=== PATIENT | male | born 1980 | race Caucasian/White ===

== ENCOUNTER 2018-05-15 15:09 | Emergency (ER) | payer SELFPAY ==
[~2018-05-15] VITALS: Ht 188 cm; Wt 96.2 kg
--- NOTE | 2018-05-15 15:09 | NUR ---
PATIENT BIBA TO BED 8 AT THIS TIME.
[2018-05-15 15:15] VITALS: BP 135/87
[2018-05-15] MEDS ORDERED: NACL 0.9% 1,000 ML IV ONE (15:28)
[2018-05-15] MEDS ORDERED: MULTIVITAMIN-12 10 ML, THIAMINE 100 MG, MAGNESIUM SULFATE 50% 2,000 MG, FOLIC ACID 5 MG... IV ONE ×5 (15:28)
[2018-05-15] MEDS ORDERED: FAMOTIDINE 20 MG/2 ML VIAL IVP ONE (15:30)
[2018-05-15] MEDS ORDERED: diphenhydrAMINE 50 MG/ML VIAL IVP ONE (15:30)
--- NOTE | 2018-05-15 15:33 | NUR ---
37 yo m biba bls with c/o ETOH. Patient sts he drank 2 bottles of white wine, nayla dickinsonio. Patient is aox4 to person, place, time, and situation, but delayed response and slurred and excessive speech. Patient aggressive on scene per evening anchor report, but is more calm now, however states that he wants to go home. Patient arrived restrainted to bl arms. Restraints removed on arrival. CMS intact to bl arms, color appropriate. pt rr even and unlabored, lungs bl clear. no injury nor fall. no hx seizures w/ hx etoh abuse. abd soft, non-tender. er md notified of pt staus. pt needs met. safety precautions in place, will continue to monitor.
--- NOTE | 2018-05-15 15:50 | NUR ---
phleb at bedside at this time.
[2018-05-15] MEDS ORDERED: FOLIC ACID 5 MG, MULTIVITAMIN-12 10 ML, THIAMINE 100 MG, MAGNESIUM SULFATE 50% 2,000 MG... IV ONE ×5 (16:03)
--- NOTE | 2018-05-15 16:06 | NUR ---
pt states that he does not want the benadryl or pepcid. dmitriy hua notified. pt , marko states that she is on her way.
[2018-05-15] MEDS ORDERED: FOLIC ACID 5 MG, MULTIVITAMIN-12 10 ML, THIAMINE 100 MG, MAGNESIUM SULFATE 50% 2,000 MG... IV SCH ×5 (16:07)
[2018-05-15 16:13] LABS: BASOPHILS % (AUTO) 0.6 % (0.0-2.0); EOSINOPHILS % (AUTO) 0.2 % (0.0-4.0); HEMATOCRIT 53.8 % (36-52); HEMOGLOBIN 18.1 g/dL (12.0-18.0); LYMPHOCYTES # (AUTO) 0.8 K/uL (2.0-11.5); LYMPHOCYTES % (AUTO) 20.2 % (20.5-51.1); MEAN CORPUSCULAR HEMOGLOBIN 32 pg (27-31); MEAN CORPUSCULAR HGB CONC 34 g/dL (33-37); MEAN CORPUSCULAR VOLUME 96.2 fL (80-94); MONOCYTES # (AUTO) 0.3 K/uL (0.8-1.0); MONOCYTES % (AUTO) 7.5 % (1.7-9.3); NEUTROPHILS # (AUTO) 2.9 K/uL (1.8-7.7); NEUTROPHILS % (AUTO) 71.5 % (42.2-75.2); PLATELET COUNT (AUTO) 134 K/uL (140-450); RED BLOOD CELL COUNT(AUTO) 5.59 MIL/uL (4.20-6.10); RED CELL DISTRIBUTION WIDTH 14.5 % (11.6-13.7)
--- NOTE | 2018-05-15 16:20 | NUR ---
AT BEDSIDE WITH PATIENT AT THIS TIME.
[2018-05-15 16:27] LABS: ALBUMIN 3.6 g/dL (3.4-5.0); ASPARTATE AMINOTRANSFERASE 47 U/L (15-37); CARBON DIOXIDE 31.1 mmol/L (21-32); CHLORIDE 98 mmol/L (98-107); CREATININE 1.2 mg/dL (0.7-1.3); GFR ARICAN-AMERICAN 87 mL/min (>90); GLUCOSE 130 mg/dL (74-106); POTASSIUM 4.1 mmol/L (3.5-5.1); SODIUM SERUM 140 mmol/L (136-145); TOTAL BILIRUBIN 0.4 mg/dL (0.0-1.0); UREA NITROGEN, BLOOD 7 mg/dL (7-18)
[2018-05-15 16:29] LABS: SALICYLATE < 2.8 mg/dL (2.8-20.0)
[2018-05-15 16:29] LABS: BARBITURATE, URINE NEG. ng/ml (NEG <=200); BENZODIAZEPINE, URINE NEG. ng/mL (NEG <=200); CANNABINOID, URINE NEG. ng/mL (NEG <=50); COCAINE, URINE NEG. ng/mL (NEG <=300); OPIATE, URINE NEG. ng/mL (NEG <=2000); PHENCYCLIDINE SCREEN,URINE NEG. ng/mL (NEG <=25)
[2018-05-15 16:30] LABS: ACETAMINOPHEN < 0.5 ug/ml (10-30)
[2018-05-15 16:30] LABS: APPEARANCE,URINE CLEAR (CLEAR); COLOR,URINE YELLOW (YELLOW)
[2018-05-15 16:31] LABS: BILIRUBIN,URINE NEGATIVE (NEGATIVE); BLOOD, URINE TRACE (NEGATIVE); LEUKOCYTE ESTERASE ,URINE NEGATIVE (NEGATIVE); NITRITE, URINE NEGATIVE (NEGATIVE); UGLUCOSE NEGATIVE (NEGATIVE)
--- NOTE | 2018-05-15 16:31 | NUR ---
critical lab value [id number]. er md pete notified
--- NOTE | 2018-05-15 17:05 | NUR ---
pt getting aggrevated at this time, states that he wants to go home. pt educated that his phani is very high and that we need to lower it in order to medically clear him to leave. pt marko states that she understands, assisting in calming pt down at this time. er notified. pt needs met, safety precautions in place. will continue to monitor.
--- NOTE | 2018-05-15 18:05 | NUR ---
marko has to leave at this time to check on children. requests that we update her at . states that she will come machine operator picker the pt when he is up for d/c
--- NOTE | 2018-05-15 18:32 | NUR ---
pt very upset at this time, threatening to run out of the door at this time. aggitated that he cannot leave at this time because phani too high. pt educated on need for safety . pt called and notified of situation. er md notified. pt needs met, safety precautions in place. pt calmed. will continue to monitor.
--- NOTE | 2018-05-15 18:40 | NUR ---
pt somehow bolused the last 500ml of multi-vitamin bag "banana bag" to himself. er md and lost charge card clerk notified. pt connected to bedside monitoring and has vss and rr even and unlabored. will continue to be closely monitored. safety precautions in place.
--- NOTE | 2018-05-15 18:53 | NUR ---
pt ambulates w/ steady gait to the restroom at this time w/o incident
--- NOTE | 2018-05-15 18:58 | NUR ---
pt upset at this time, ripped out his IV. bleeding controlled. catheter intact. er md notified. pt needs met, safety precautions in place. will continue to monitor. marko called and given an update at this time.
--- NOTE | 2018-05-15 19:03 | NUR ---
pt given another cup of water at this time. tolerated well.
--- NOTE | 2018-05-15 19:13 | NUR ---
report given to reji holguin at this time
--- NOTE | 2018-05-15 19:25 | NUR ---
spoke to , stated to have pt call her when he gets discharged. md made aware. pt waiting for d/c papers. vitals stable.
[2018-05-15 19:35] VITALS: BP 129/78
--- NOTE | 2018-05-15 19:35 | NUR ---
Patient discharged with v/s stable. Written and verbal after care instructions given and explained. Patient verbalized understanding. Ambulatory with steady gait. All questions addressed prior to discharge. Advised to follow up with PMD.
== END 2018-05-15 19:35 | disposition home or self-care (01) ==
LOC: MED 15:09
DX: F10.229 Alcohol dependence with intoxication, unspecified (principal); I10 Essential (primary) hypertension; Y90.8 Blood alcohol level of 240 mg/100 ml or more
CPT/HCPCS: 36415; 80053; 80305; 81003; 85025; 96361; 96365; 96366; 99285; A9153; G0480; G0482; J3411; J3475; J3490; J7030